=== PATIENT | female | born 1995 | race Caucasian/White ===

== ENCOUNTER 2020-05-09 08:11 | Emergency (ER) | payer BC, OTHER ==
[~2020-05-09] VITALS: Ht 162.6 cm; Wt 79.2 kg
[~2020-05-09 08:11] MED LIST: BIRTH CONTROL PILLS
[2020-05-09] MEDS ORDERED: KETOROLAC 30 MG/1 ML IVPush ONE (08:30)
[2020-05-09] MEDS ORDERED: SODIUM CHLORIDE FLUSH 10ML SYR IVF ONE (08:30)
[2020-05-09] MEDS ORDERED: KETOROLAC 30 MG/1 ML ONE (08:39)
--- NOTE | 2020-05-09 08:55 | NUR ---
IV started and medication provided as per eMAR. PCXR already completed after pt removed nipple piercings. Piercings left out until possible CT orders are received or not.
[2020-05-09 09:03] LABS: BASOPHILS % (AUTO) 1 % (0-1); EOSINOPHILS % (AUTO) 1 % (1-7); LYMPHOCYTES % (AUTO) 40 % (22-44); MEAN CORPUSCULAR HEMOGLOBIN 32.8 pg (27.0-34.8); MEAN CORPUSCULAR HGB CONC 35.5 g/dL (32.4-35.8); MEAN PLATELET VOLUME 7.4 fL (7.4-10.4); MONOCYTES % (AUTO) 10 % (2-9); NEUTROPHILS % (AUTO) 48 % (42-75); PLATELET COUNT 276 x10^3/uL (130-400); RED CELL DISTRIBUTION WIDTH 12.3 % (9.6-15.2)
[2020-05-09 09:06] LABS: MD NO
--- NOTE | 2020-05-09 09:15 | NUR ---
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 Pt states she is concerned about her issue being r/t vaping as she can suck her tongue and small amounts of blood come up onto surface of tongue without pain noted. MD notified. Labs and CXR results posted thus far assessed as well.
[2020-05-09 11:28] VITALS: BP 99/58
== END 2020-05-09 11:31 | disposition home or self-care (01) ==
LOC: ED 10:05
DX: R07.89 Other chest pain (principal); R00.1 Bradycardia, unspecified
CPT/HCPCS: 36415; 71045; 85025; 85379; 93005; 96374; 99285; J1885